=== PATIENT | female | born 1955 | race Caucasian/White ===

== ENCOUNTER 2022-11-28 06:11 | Day surgery (SDC) | payer MEDICARE, SELFPAY ==
[2022-11-23 13:15] VITALS: BMI 33.0
[2022-11-28] VITALS (7 sets, daily range): BP systolic 119–146; BP diastolic 48–77; PULSE 55–78; RESP 16–18; TEMP 36.6–37; O2SAT 96–98
== END 2022-11-28 08:14 | disposition home or self-care (01) ==
PROVIDERS: PCP Family Medicine; Visit Provider Ophthalmology
DX: H25.9 Unspecified age-related cataract (principal); Z79.899 Other long term (current) drug therapy
CPT/HCPCS: 66984; V2632

== ENCOUNTER 2022-12-12 06:22 | Day surgery (SDC) | payer MEDICARE, SELFPAY ==
[2022-12-11 10:11] VITALS: BMI 32.0
[2022-12-12] VITALS (7 sets, daily range): BP systolic 125–142; BP diastolic 66–78; PULSE 51–61; RESP 16–18; TEMP 36.6–36.9; O2SAT 95–100
== END 2022-12-12 08:20 | disposition home or self-care (01) ==
PROVIDERS: PCP Family Medicine; Visit Provider Ophthalmology
DX: H26.9 Unspecified cataract (principal)
CPT/HCPCS: 66984; V2632